=== PATIENT | female | born 1945 | race Caucasian/White ===

== ENCOUNTER → 2017-03-18 | Outpatient (CLI) | payer BC ==
[~2017-03-18] MED LIST: LEVO25TA5 PO
--- NOTE | 2017-03-18 11:39 | DIAGNOSTIC IMAGING REPORT ---
ABDOMEN COMPLETE (US) CLINICAL HISTORY: Left-sided tenderness with nausea. Abdominal pain. COMPARISON STUDY: Abdominal ultrasound April 23, [address] of the abdomen April 04, 2013. FINDINGS: Liver morphology is normal. A 1.7 cm mixed echogenicity right hepatic lobe lesion was shown to represent a hemangioma on CT of April 04, 2013. This is unchanged. There are no gallstones. There is no gallbladder wall thickening. The pancreatic body is normal. The head and tail are slightly obscured. There is no biliary ductal dilatation. The common bile duct measures 3 mm in caliber. The size of the spleen is normal. The right kidney measures 9.5 cm in maximal dimension and the left measures 10.4 cm. There is no hydronephrosis. A 4 mm right renal lesion is difficult to characterize given its small size but this favors a cyst. The caliber of the abdominal aorta is normal. Visualized portions of the IVC are patent. IMPRESSION: 1. No gallstones or biliary ductal dilatation. 2. 1.7 cm right hepatic lobe hemangioma which is unchanged since prior exams. 3. No hydronephrosis. 4. No change in appearance of the abdomen by sonography. Electronically signed by: Ti Flowers M.D. 03/18/2017 11:38 AM Dictated Date/Time: 03/18/2017 11:34 AM
== END | disposition home or self-care (01) ==
LOC: C.ULTR 10:44
PROVIDERS: ATTEND Family Medicine
DX: R10.9 Unspecified abdominal pain (principal)

== ENCOUNTER 2017-09-30 14:28 | Emergency (ER) | payer BC ==
[~2017-09-30] VITALS: Ht 165.1 cm; Wt 37.3 kg
[2017-09-30 14:33] VITALS: TEMP 37; Ht 165.1 cm; Wt 37.3 kg
[2017-09-30] MEDS ORDERED: ONDANSETRON INJ 2 MG/ML 2 ML VIAL IV STA (14:40)
[2017-09-30] MEDS ORDERED: FAMOTIDINE 20MG/5ML IV PUSH IV STA (14:40)
[2017-09-30] MEDS ORDERED: SODIUM CHLORIDE 0.9% 1000ML 2,000 ML IV STA (14:40)
--- NOTE | 2017-09-30 14:46 | EMERGENCY ROOM VISIT NOTE ---
History Report prepared by Lawson: Lauren Price Under the Supervision of: Dr. Giorgi Schreiber M.D. First contact with patient: 14:34 Chief Complaint: DIZZY Stated Complaint: ILLNESS Nursing Triage Summary: pt arrives via BLS per BLS pt had episode of diarrhea, she became dizzy, diaphoretic, and pale "I felt like I was going to pass out, I am sometimes diaphoretic for the past few months but this was worse." "I was sitting on the toilet, I put my head between my knees, when I was able I walked downstairs, I layed on the floor and called 911, it just happened so fast." Reports no Chest Pain or SOB, "my whole belly is sore but it often feels this way." Per EMS pt has HX of IBS, Colitis, and hypothyroidism History of Present Illness The patient is a 71 year old female who presents to the Emergency Room with complaints of constant dizziness beginning today. The patient states that she had an episode of diarrhea today and while she was sitting on the toilet she began to feel diaphoretic and lightheaded. She reports that she lowered herself to the ground and has been feeling dizzy since then. She complains of abdominal pain, ringing ears for the last few months, a dry cough, and nausea that has resolved. The patient states that she has had similar episodes over the last few months. She denies any fever, chills, and congestion. She reports that the dizziness does not feel like the room is spinning. She notes a history of acid reflux, IBS, and PTSD. Source of History: patient Onset: today Position: other (global) Quality: other (dizziness) Timing: constant Associated Symptoms: + cough, + nausea, + abdominal pain, + diarrhea, No fevers, No chills Note: The patient complains of dizziness and lightheadedness. She denies any congestion. Review of Systems See HPI for pertinent positives and negatives. A total of ten systems were reviewed and were otherwise negative. Past Medical & Surgical Medical Problems: (1) Anxiety (2) Bilateral tubal ligation (3) Concussion injury of brain (4) GERD (gastroesophageal reflux disease) (5) IBS (irritable bowel syndrome) (6) Post traumatic stress disorder Family History Patient reports no known family medical history. Social History Smoking Status: Never Smoker Alcohol Use: none Drug Use: none Marital Status: Housing Status: lives alone Occupation Status: employed Current/Historical Medications Scheduled Calcium Carbonate-Vitamin D (Calcium), 1 TAB PO DAILY Cholecalciferol (Vitamin D3), 1 TAB PO DAILY Ibuprofen (Advil), 400 MG PO PRN UD Levothyroxine Sodium (Levothyroxine Sodium), 25 MCG PO DAILY Magnesium Oxide (Mag-Ox), 400 MG PO DAILY Multivitamins/Minerals (Mvi With Minerals), 1 TAB PO DAILY Probiotic Product (Probiotic), 1 CAP PO DAILY Allergies Coded Allergies: Amoxicillin (Verified Allergy, Mild, HIVES, 04/14/16) Dairy (Verified Allergy, Unknown, UNKNOWN, 04/14/16) Gluten (Verified Allergy, Unknown, unknown, 04/14/16) Penicillins (Verified Allergy, Unknown, 04/14/16) Thiopental (Verified Allergy, Unknown, UNKNOWN, 04/14/16) LISTED "SODIUM PENTATHOL" IN UNCODED ALLERGIES Physical Exam Vital Signs Date Time Temp Pulse Resp B/P (MAP) Pulse Ox O2 Delivery O2 Flow Rate FiO2 09/30/17 18:30 88 16 134/76 98 09/30/17 17:41 64 16 115/72 96 Room Air 09/30/17 16:35 89 16 145/68 96 Room Air 09/30/17 16:00 64 16 124/64 95 Room Air 09/30/17 15:24 66 09/30/17 15:17 97 Room Air 09/30/17 14:33 37.0 56 16 119/65 98 Room Air Physical Exam GENERAL: Awake, alert, well-appearing, in no distress HENT: Normocephalic, atraumatic. Dry cracked mucous membranes. EYES: Normal conjunctiva. Sclera non-icteric. NECK: Supple. No nuchal rigidity. FROM. No JVD. RESPIRATORY: Clear to auscultation. CARDIAC: Regular rate, normal rhythm. Extremities warm and well perfused. Pulses equal. ABDOMEN: Soft, non-distended. No tenderness to palpation. No rebound or guarding. No masses. RECTAL: Deferred. MUSCULOSKELETAL: Chest examination reveals no tenderness. The back is symmetrical on inspection without obvious abnormality. There is no CVA tenderness to palpation. No joint edema. LOWER EXTREMITIES: Calves are equal size bilaterally and non-tender. No edema. No discoloration. NEURO: Normal sensorium. No sensory or motor deficits noted. normal cerebellar function with [id number], alternating palms, [id number] SKIN: No rash or jaundice noted. Medical Decision & Procedures ER Provider Diagnostic Interpretation: X-ray: Per my interpretation, radiologist review. CHEST ONE VIEW PORTABLE FINDINGS: The heart is normal in size. There is no lobar consolidation. There is subtle biapical fibronodular opacities, postinflammatory. There is no failure. There are no pleural effusions.[ IMPRESSION: 1. Subtle biapical fibronodular opacities, possibly postinflammatory 2. No evidence of lobar consolidation. No evidence of failure. Electronically signed by: Benny Polo M.D. 09/30/2017 3:39 PM Dictated Date/Time: 09/30/2017 3:38 PM Laboratory Results 09/30/17 15:00 Red Blood Count 3.86, Mean Corpuscular Volume 97.4, Mean Corpuscular Hemoglobin 32.1, Mean Corpuscular Hemoglobin Concent 33.0, Mean Platelet Volume 10.1, Neutrophils (%) (Auto) 63.4, Lymphocytes (%) (Auto) 25.1, Monocytes (%) (Auto) 9.2, Eosinophils (%) (Auto) 1.6, Basophils (%) (Auto) 0.5, Neutrophils # (Auto) 3.67, Lymphocytes # (Auto) 1.45, Monocytes # (Auto) 0.53, Eosinophils # (Auto) 0.09, Basophils # (Auto) 0.03 09/30/17 15:00 Test 09/30/17 15:00 09/30/17 16:29 White Blood Count 5.78 K/uL (4.8-10.8) Red Blood Count 3.86 M/uL (4.2-5.4) Hemoglobin 12.4 g/dL (12.0-16.0) Hematocrit 37.6 % (37-47) Mean Corpuscular Volume 97.4 fL (80-100) Mean Corpuscular Hemoglobin 32.1 pg (25-34) Mean Corpuscular Hemoglobin Concent 33.0 g/dl (32-36) Platelet Count 193 K/uL (130-400) Mean Platelet Volume 10.1 fL (7.4-10.4) Neutrophils (%) (Auto) 63.4 % Lymphocytes (%) (Auto) 25.1 % Monocytes (%) (Auto) 9.2 % Eosinophils (%) (Auto) 1.6 % Basophils (%) (Auto) 0.5 % Neutrophils # (Auto) 3.67 K/uL (1.4-6.5) Lymphocytes # (Auto) 1.45 K/uL (1.2-3.4) Monocytes # (Auto) 0.53 K/uL (0.11-0.59) Eosinophils # (Auto) 0.09 K/uL (0-0.5) Basophils # (Auto) 0.03 K/uL (0-0.2) RDW Standard Deviation 44.3 fL (36.4-46.3) RDW Coefficient of Variation 12.5 % (11.5-14.5) Immature Granulocyte % (Auto) 0.2 % Immature Granulocyte # (Auto) 0.01 K/uL (0.00-0.02) Anion Gap 4.0 mmol/L (3-11) Est Creatinine Clear Calc Drug Dose 34.5 ml/min Estimated GFR () 76.6 Estimated GFR (Non- 66.1 BUN/Creatinine Ratio 16.1 (10-20) Calcium Level 8.7 mg/dl (8.5-10.1) Total Bilirubin 1.0 mg/dl (0.2-1) Direct Bilirubin 0.2 mg/dl (0-0.2) Aspartate Amino Transf (AST/SGOT) 16 U/L (15-37) Alanine Aminotransferase (ALT/SGPT) 19 U/L (12-78) Alkaline Phosphatase 39 U/L (45-117) Troponin I < 0.015 ng/ml (0-0.045) Total Protein 6.4 gm/dl (6.4-8.2) Albumin 3.5 gm/dl (3.4-5.0) Lipase 133 U/L (73-393) Thyroid Stimulating Hormone (TSH) 6.240 uIu/ml (0.300-4.500) Free Thyroxine 0.97 ng/dl (0.80-1.60) Free Triiodothyronine 2.89 pg/ml (2.30-4.20) Urine Color YELLOW Urine Appearance CLEAR (CLEAR) Urine pH 8.0 (4.5-7.5) Urine Specific [place] 1.007 (1.000-1.030) Urine Protein NEG (NEG) Urine Glucose (UA) NEG (NEG) Urine Ketones NEG (NEG) Urine Occult Blood NEG (NEG) Urine Nitrite NEG (NEG) Urine Bilirubin NEG (NEG) Urine Urobilinogen NEG (NEG) Urine Leukocyte Esterase NEG (NEG) Laboratory results reviewed by me Medications Administered Medications (Trade) Dose Ordered Sig/Nelson Route Start Time Stop Time Status Last Admin Dose Admin Ondansetron HCl (Zofran Inj) 4 mg NOW STAT IV 09/30/17 14:40 09/30/17 14:51 DC 09/30/17 15:23 4 MG Sodium Chloride 2,000 ml @ 999 mls/hr Q2H1M STAT IV 09/30/17 14:40 09/30/17 16:40 DC 09/30/17 15:20 999 MLS/HR Famotidine (Pepcid 20mg Iv Push) 20 mg NOW STAT IV 09/30/17 14:40 09/30/17 14:51 DC 09/30/17 15:23 20 MG ECG Indication: weakness Rate (beats per minute): 69 Rhythm: normal sinus Findings: no acute ischemic change, other (sinus arrythmia) ED Course 1434: The patient was evaluated in room C10. A complete history and physical exam was performed. 1706: I reevaluated and updated the patient. 4: I reevaluated the patient. Discussed results and discharge instructions: She verbalized understanding and agreement. The patient is ready for discharge. Medical Decision I reviewed the patient's past medical history, medications, and the nursing notes as described above. The patient's presentation and history were concerning for dehydration, gastritis, gastroenteritis, IBS, electrolyte abnormality, ACS, arrhythmia, pneumonia, UTI, panic attack. The patient is a 71-year-old woman with a past medical history of hypothyroidism on Synthroid, IBS, as well as question of adrenal abnormalities per patient presents emergency Department with near syncopal episode when having diarrhea in the bathroom patient but did not pass out and lowered herself to the floor and called 911 per hpi. On arrival the patient is fatigued appearing but in no acute distress, afebrile with stable vital signs. Neuro intact including normal cerebellar function with [id number]-[id number], alternating palms, [id number]. Dry cracked mucous membranes. TSH elevated to 6. T3 and T4 wnl. Labs otherwise unremarkable. Patient improved after IV fluids and able to ambulate without difficulty. Findings and plan for follow-up reviewed with patient. Patient agreeable and d/c'd per discharge instructions. Medication Reconcilliation Current Medication List: was personally reviewed by me Blood Pressure Screening Patient's blood pressure: Normal blood pressure Blood pressure disposition: Did not require urgent referral Impression Primary Impression: Near syncope Additional Impressions: Dizziness Dehydration Scribe Attestation The scribe's documentation has been prepared under my direction and personally reviewed by me in its entirety. I confirm that the note above accurately reflects all work, treatment, procedures, and medical decision making performed by me. Departure Information Dispostion Home / Self-Care Referrals Juanito Dominguez M.D. (PCP) Patient Instructions Dizziness Fainting Poss Causes, ED Dehydration, ED Near Syncope Unkn, [facility] Additional Instructions Please follow up with your primary care physician in the next 1-3 days for re- evaluation. You likely were mildly dehydrated. Otherwise, your exam, EKG, chest xray, and lab results did not show signs of an emergent condition at this time. Drink plenty of fluids to ensure hydration. Return to the emergency department for worsening symptoms as described in the accompanying instructions. Problem Qualifiers
[2017-09-30 15:07] LABS: BASO % 0.5 %; BASO ABS # 0.03 K/uL (0-0.2); COMPLETE YES; EOS % 1.6 %; HEMATOCRIT 37.6 % (37-47); IG% 0.2 %; LYMPH % 25.1 %; LYMPH ABS # 1.45 K/uL (1.2-3.4); MEAN CELL VOLUME 97.4 fL (80-100); MEAN CORPUSCULAR HEMOGLOBIN 32.1 pg (25-34); MEAN PLATELET VOLUME 10.1 fL (7.4-10.4); MONO % 9.2 %; NEUT % 63.4 %; PLATELET COUNT 193 K/uL (130-400); RED BLOOD COUNT 3.86 M/uL (4.2-5.4); WHITE BLOOD COUNT 5.78 K/uL (4.8-10.8)
[2017-09-30 15:17] VITALS: O2SAT 97
[2017-09-30] MEDS ORDERED: CALC-51 PO (15:24)
[2017-09-30] MEDS ORDERED: MAGN400T6 PO (15:24)
[2017-09-30] MEDS ORDERED: MULT-513 PO (15:24)
[2017-09-30] MEDS ORDERED: MISCCAP80 PO (15:24)
[2017-09-30] MEDS ORDERED: IBUP-1277 PO (15:24)
[2017-09-30] MEDS ORDERED: CHOL1000 PO (15:24)
[2017-09-30 15:26] LABS: ALT/SGPT 19 U/L (12-78); AST/SGOT 16 U/L (15-37); BLOOD UREA NITROGEN 14 mg/dl (7-18); BUN/CREATININE RATIO 16.1 (10-20); CALCIUM 8.7 mg/dl (8.5-10.1); CARBON DIOXIDE 27 mmol/L (21-32); CHLORIDE 106 mmol/L (98-107); CREATININE 0.88 mg/dl (0.60-1.20); GLUCOSE 148 mg/dl (70-99); POTASSIUM 3.7 mmol/L (3.5-5.1); SODIUM 137 mmol/L (136-145)
[2017-09-30 15:37] LABS: ALKALINE PHOSPHATASE 39 U/L (45-117)
--- NOTE | 2017-09-30 15:40 | DIAGNOSTIC IMAGING REPORT ---
CHEST ONE VIEW PORTABLE CLINICAL HISTORY: Atypical chest pain COMPARISON STUDY: 04/18/2014 FINDINGS: The heart is normal in size. There is no lobar consolidation. There is subtle biapical fibronodular opacities, postinflammatory. There is no failure. There are no pleural effusions.[ IMPRESSION: 1. Subtle biapical fibronodular opacities, possibly postinflammatory 2. No evidence of lobar consolidation. No evidence of failure. Electronically signed by: Benny Polo M.D. 09/30/2017 3:39 PM Dictated Date/Time: 09/30/2017 3:38 PM
[2017-09-30 16:47] LABS: URINE APPEARANCE CLEAR (CLEAR); URINE BILIRUBIN NEG (NEG); URINE COLOR YELLOW; URINE NITRITE NEG (NEG); URINE SPECIFIC GRAVITY 1.007 (1.000-1.030); UROBILINOGEN NEG (NEG); ZZUR CULT IF INDIC CLEAN CATCH NO
[2017-09-30 16:59] LABS: MANUAL MICROSCOPIC REQUIRED? NO; REVIEW REQ? NO
[2017-09-30] MEDS ORDERED: LEVO25TA5 PO (17:12)
[2017-09-30 18:30] VITALS: BP 134/76; PULSE 88; O2SAT 98
== END 2017-09-30 18:45 | disposition home or self-care (01) ==
LOC: EDBD 14:28 → C.EDC 14:29
DX: R55 Syncope and collapse (principal); R42 Dizziness and giddiness; E86.0 Dehydration; E03.9 Hypothyroidism, unspecified; K21.9 Gastro-esophageal reflux disease without esophagitis; F41.9 Anxiety disorder, unspecified; K58.9 Irritable bowel syndrome, unspecified; Z87.820 Personal history of traumatic brain injury; Z79.899 Other long term (current) drug therapy; Z88.0 Allergy status to penicillin; Z88.1 Allergy status to other antibiotic agents; Z88.8 Allergy status to other drugs, medicaments and biological substances; Z91.011 Allergy to milk products

== ENCOUNTER → 2017-10-30 | Outpatient (CLI) | payer BC ==
[~2017-10-30] MED LIST changes: +CALC-51 PO; +CHOL1000 PO; +IBUP-1277 PO; +MAGN400T6 PO; +MISCCAP80 PO; +MULT-513 PO
--- NOTE | 2017-10-30 15:09 | MAMMOGRAPHY REPORT ---
BILATERAL DIGITAL SCREENING MAMMOGRAM TOMOSYNTHESIS WITH CAD: 10/30/2017 CLINICAL HISTORY: Routine screening. Patient has no complaints. TECHNIQUE: Breast tomosynthesis in addition to standard 2D mammography was performed. Current study was also evaluated with a Computer Aided Detection (CAD) system. COMPARISON: Comparison is made to exams dated: 07/08/2015 mammogram, 02/10/2010 mammogram - [facility], 05/18/2009, 05/13/2009, 06/25/2000 mammogram, and 10/10/1998 mammogram - [facility]. BREAST COMPOSITION: There are scattered areas of fibroglandular density in both breasts. FINDINGS: There are a few benign coarse calcifications in the breasts. No new suspicious mass, archi tectural distortion or cluster of suspicious microcalcifications is seen. IMPRESSION: ACR BI-RADS CATEGORY 1: NEGATIVE There is no mammographic evidence of malignancy. A 1 year screening mammogram is recommended. The pa tient will receive written notification of the results. Approximately 10% of breast cancers are not detected with mammography. A negative mammographic report should not delay biopsy if a clinically suggestive mass is present. Edna Rene M.D. ay/:10/30/2017 12:03:42 [employer]borne Weapons Technical Manager: Celia WILSON(Lali)(Konrad), [facility] letter sent: Normal 1/2 BI-RADS Code: ACR BI-RADS Category 1: Negative
== END | disposition home or self-care (01) ==
LOC: C.MAMM 10:47
PROVIDERS: ATTEND Obstetrics & Gynecology
DX: Z12.31 Encounter for screening mammogram for malignant neoplasm of breast (principal)

== ENCOUNTER 2019-08-25 13:50 | Observation (INO) ==
[2019-08-25] MEDS ORDERED: ONDANSETRON INJ 2 MG/ML 2 ML VIAL IV STA ×2 (14:08→14:24)
[2019-08-25 14:24] LABS: Basophils # (auto) 0.02 K/uL (0-0.2); Basophils % (auto) 0.2 %; Eosinophils # (auto) 0.01 K/uL (0-0.5); Eosinophils % (auto) 0.1 %; Hematocrit (blood only) 43.8 % (37-47); Hemoglobin 14.4 g/dL (12.0-16.0); Immature Granulocytes # (auto) 0.01 K/uL (0.00-0.02); Immature Granulocytes % (auto) 0.1 %; Lymphocytes # (auto) 1.33 K/uL (1.2-3.4); Lymphocytes % (auto) 16.5 %; Mean Corpuscular Hgb Conc 32.9 g/dL (32-36); Mean Corpuscular Volume 94.2 fL (80-100); Mean Platelet Volume 9.5 fL (7.4-10.4); Monocytes # (auto) 0.57 K/uL (0.11-0.59); Monocytes % (auto) 7.1 %; Neutrophils # (auto) 6.11 K/uL (1.4-6.5); Platelet Count 235 K/uL (130-400); RDW Coefficient of Variation 12.2 % (11.5-14.5); RDW Standard Deviation 41.9 fL (36.4-46.3); Red Blood Count 4.65 M/uL (4.2-5.4); White Blood Count 8.05 K/uL (4.8-10.8)
[2019-08-25] MEDS ORDERED: SODIUM CHLORIDE 0.9% 1000ML 1,000 ML IV ONE (14:24)
[2019-08-25] MEDS ORDERED: DIAZEPAM 5 MG/ML INJ 10ML VIAL IV STA ×4 (14:24→16:24)
[2019-08-25 14:51] LABS: Alanine Aminotransferase 15 U/L (12-78); Albumin Level 4.1 gm/dl (3.4-5.0); Aspartate Aminotransferase 19 U/L (15-37); BUN Creatinine Ratio 16.3 (10-20); Blood Urea Nitrogen 15 mg/dl (7-18); Calcium 9.5 mg/dl (8.5-10.1); Carbon Dioxide 22 mmol/L (21-32); Chloride 105 mmol/L (98-107); Creatinine Clr Calc Pharmacy 46.5 ml/min; Est GFR (African American) 70.7; Glucose 101 mg/dl (70-99); Lipase 119 U/L (73-393); Potassium 3.8 mmol/L (3.5-5.1); Sodium 138 mmol/L (136-145)
[2019-08-25 14:56] LABS: Albumin Globulin Ratio 1.4 (0.9-2); Alkaline Phosphatase 46 U/L (45-117); Bilirubin,Total 2.8 mg/dl (0.2-1); Total Protein 7.1 gm/dl (6.4-8.2); Troponin I < 0.015 ng/ml (0-0.045)
[2019-08-25] MEDS ORDERED: METOCLOPRAMIDE HCL INJ 5 MG/ML 2 ML VIAL IV STA (15:25)
[2019-08-25] MEDS ORDERED: PROMETHAZINE 25 MG/51 ML BAG IV STA (17:04)
[2019-08-25] MEDS ORDERED: SODIUM CHLORIDE 0.9% 1000ML 500 ML IV ONE (17:04)
[2019-08-25] MEDS ORDERED: DiphenhydrAMINE HCL 50 MG/ML VIAL IV STA (17:04)
[2019-08-25] MEDS ORDERED: HALOPERIDOL LACTATE 5 MG/ML 1 ML VIAL IV STA (19:55)
--- NOTE | 2019-08-25 20:24 | History & Physical Report ---
Date of Service August 25, 2019 Assessment & Plan (1) Persistent vomiting: Ms. Merino is a 73-year-old female with a history of IBS, anxiety, and GERD who presents to the emergency department due to a 1 day history of generalized weakness, nausea, and intractable vomiting. ED Course: 4 mg IV Zofran, 1 L normal saline bolus, 5 mg IV Valium, 10 mg IV Reglan, 3 mg IV Valium, 25 mg IV Benadryl, 25 mg IV Phenergan, 500 mL normal saline bolus Intractable vomiting -Admit to med/surg -Patient continues to have intractable nausea and vomiting, despite several medications administered in the ER -Patient reports a long-standing history of the same -No red flag symptoms to suggest acute abdomen -Apart from mildly elevated bilirubin at 2.8, CBC, CMP, lipase, and troponin are normal -Clear liquid diet ordered, IV Zofran and Phenergan ordered as needed for nausea -Consider additional doses of Valium as needed -Maintenance IV fluids with LR at 95 mls/hr x 2 bags -Gastric occult blood positive, start 40 mg Protonix twice daily -Patient not currently having any more bloody emesis, consider GI consult if this recurs Anxiety -Continue home lorazepam nightly CODE STATUS: Full DVT prophylaxis: SCDs Disposition: Admit to med/surg (2) IBS (irritable bowel syndrome): (3) Abdominal pain: (4) Anxiety: (5) GERD (gastroesophageal reflux disease): History of Present Illness Chief Complaint: Vomiting Primary Care Provider: Juanito Dominguez MD Ms. Merino is a 73-year-old female with a history of IBS, anxiety, and GERD who presents to the emergency department due to a 1 day history of generalized weakness, nausea, and intractable vomiting. Ms. Tompkins reports that she has a history of episodic vomiting, which has been present all her life. She states that she has episodes randomly, lasting up to 3 days in duration, and then spontaneously resolving. She notes that she began to feel nauseous and unwell 2 days ago, and reported vomiting that began today. She states that she had several episodes of vomiting at home, and did endorse vomiting bright red blood at one point, which has since resolved. She reports associated abdominal pain, but denies a history of ulcers in the past. She states that she has never had an EGD before. She endorses associated loose stools, but denies the presence of blood in her stools. She reports a "subjective fever" at home, stating that she normally has a low temperature, and reporting a "fever of 37.3 C." She denies any chest pain, or shortness of breath. She has no urinary complaints. She states she has vomited approximately 7 times in the emergency department, but does report improvement with the administered medications. Allergies Allergy/AdvReac Type Severity Reaction Status Date / Time amoxicillin Allergy Severe Anaphylaxis Verified 08/25/19 15:13 Penicillins Allergy Severe Anaphylaxis Verified 08/25/19 15:13 morphine Allergy Intermediate VOMITTING Unverified 08/25/19 15:13 thiopental Allergy Intermediate VOMITTING Verified 08/25/19 15:13 milk Allergy Mild STOMACH Verified 08/25/19 15:13 CRAMPS gluten AdvReac Mild STOMACH Verified 08/25/19 15:13 CRAMPS Home Medications Home Medications Medication Instructions Recorded Confirmed Type vitamin B complex 1 tab PO DAILY 08/07/18 08/25/19 History Probiotic 3,000 mmu cells PO DAILY 08/25/19 08/25/19 History lorazepam 0.25 mg PO HS 08/25/19 08/25/19 History promethazine 25 mg KS Q6H PRN #12 ea 08/25/19 Rx pantoprazole 40 mg PO BID 14 Days #28 tab 08/26/19 Rx Past Med/Surg History Medical History Anemia A TEENAGER Anxiety Cancer SKIN BCC ON NECK Depression Fibromyalgia Gall bladder disease "SPASTIC GALL BLADDER" GERD (gastroesophageal reflux disease) (Chronic) Gluten intolerance Hypothyroidism NO CURRENT TX Irritable bowel syndrome Osteoarthritis PTSD (post-traumatic stress disorder) Syncope LAST WEEK AFTER SURGEON'S OFFICE (PAIN INDUCED AND HAD NOT EATEN). Surgical History History of bilateral tubal ligation History of colonoscopy History of esophagogastroduodenoscopy (EGD) History of rhinoplasty History of surgery RT HUMEROUS BONE SPURS REMOVED LEFT HUMEROUS FX REPAIR History of tooth extraction S/P LASIK surgery of both eyes Family History Other Family history non-contributory Social History Preferred Language: Monegasque Communication Ability: Effective Hog Sticker Required: No Beliefs That Will Affect Care: None Current Living Situation: Alone Other Information That Helps Us Care for You: No Feels Safe at Home: Yes Safety Concerns: Feels Safe At This Time Smoking Status: Never smoker Second Hand Exposure: Yes (IN THE PAST) ; Hx Alcohol Use: No Hx Substance Use: No Review of Systems Constitutional: + fever, + fatigue, + weakness and + anorexia Ear, Nose, Mouth, Throat: no nasal congestion and no sore throat Respiratory: no cough, no dyspnea and no wheezing Cardiovascular: no chest pain, no syncope, no edema and no calf pain Gastrointestinal: + abdominal pain, + nausea, + vomiting and + change in bowel habits Genitourinary: no dysuria, no difficulty urinating, no urinary frequency and no urinary urgency Musculoskeletal: + back pain Integumentary: no rash and no lesions Physical Exam Constitutional: WD/WN, vitals as above + thin Eyes: PERRL, conjunctivae normal, anicteric sclerae ENMT: external ear and nose normal, oropharynx normal Respiratory: normal respiratory effort, lungs clear to auscultation Cardiovascular: RRR, no murmur, no edema Gastrointestinal (Abdomen): Percussion/Palpation: + abdomen tender (Discomfort noted throughout abdomen) and abdomen soft; no guarding and abdomen not rigid Musculoskeletal: no cyanosis or clubbing, extremities motor strength 5/5 Skin: no rashes, warm and dry Neurologic: PERRL, EOMI, accommodation nl, no face palsy, no dysarthria moves all extremities; no focal motor deficits Psychiatric: Orientation: alert and oriented x 3 Affect: + flat affect Results & Data Vital Signs (Past 12 Hours) Vital Signs Temp Pulse Pulse Resp BP BP Pulse Ox 08/25/19 19:22 83 18 151/85 H 96 08/25/19 19:00 85 18 140/92 95 08/25/19 15:16 105 H 18 158/73 H 94 08/25/19 14:30 96 08/25/19 13:53 36.6 C 97 H 18 144/92 H 99 Code Status & VTE Plan VTE Prophylaxis Plan VTE Prophylaxis will be ordered: Yes Supervising Physician Co-Signing Physician Notes Attending addendum: I have physically seen this patient, have supervised the medical residents activities, and agree with the H&P unless as otherwise noted. Assessment and Plan: Intractable nausea and vomiting/irritable bowel syndrome/chronic abdominal pain- Admit to medical surgical floor Has had extensive treatment in the emergency department with little response to multiple medications. Extensive history of the symptoms, and unresponsiveness to therapy. Supportive treatment at this time with IV fluids, IV Zofran, IV Phenergan, oral Protonix and rehydration with lactated Ringer's. No further work-up needed. Significant anxiety component. Remainder of orders and notations as noted. Resident Activity Tracking Resident Involvement: Resident Care Provided Care Provided: Adult [facility] Medicine
[2019-08-25 20:44] LABS: Gastric Occult Blood Positive (Negative); pH Gastric Fluid 3
[2019-08-25] MEDS ORDERED: LORazepam 0.5 MG TAB PO SCH (21:25)
[2019-08-25] MEDS ORDERED: MAGNESIUM HYDROXIDE SUSP 30 ML UDC PO PRN (21:25)
[2019-08-25] MEDS ORDERED: ACETAMINOPHEN 325 MG TAB PO PRN (21:25)
[2019-08-25] MEDS ORDERED: IBUPROFEN 200 MG TAB PO PRN (21:25)
[2019-08-25] MEDS ORDERED: ALUMINUM/MAGNESIUM SUSP 30 ML UDC PO PRN (21:25)
[2019-08-25] MEDS ORDERED: ONDANSETRON INJ 2 MG/ML 2 ML VIAL IV PRN (21:25)
[2019-08-25] MEDS ORDERED: PROMETHAZINE HCL 6.25 MG in SODIUM CHLORIDE 0.9% 50 ML IV PRN (21:51)
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
[2019-08-25] MEDS: LACTATED RINGER'S 1,000 ML IV SCH (22:04)
[2019-08-25] MEDS: PANTOprazole 40 MG TAB PO SCH (22:20)
[2019-08-26 00:18] LABS: Appearance Urine Clear (Clear); Bacteria Urine Automated Negative (Negative); Bilirubin Urine Negative (Negative); Blood Urine 2+ (Negative); Color Urine Yellow; Glucose Urine UA Negative (Negative); Leukocyte Esterase Urine Negative (Negative); Nitrite Urine Negative (Negative); Protein Urine Negative (Negative); Specific Gravity Urine 1.015 (1.000-1.030); Urobilinogen Urine Negative (Negative)
[2019-08-26 00:21] LABS: Ketones Urine 4+ (Negative)
--- NOTE | 2019-08-26 07:20 | CT Scan Report ---
ABDOMEN AND PELVIS CT WITHOUT CONTRAST CT DOSE: 399.72 mGy.cm HISTORY: hematuria, left flank pain, r/o kidney stones TECHNIQUE: Multiaxial CT images of the abdomen and pelvis were performed without contrast. A dose lo wering technique was utilized adhering to the principles of ALARA. COMPARISON STUDY: Abdomen and pelvis CT 07/25/2018. FINDINGS: A stable 3 mm nodule within the right middle lobe. No pneumoperitoneum. No pneumatosis. No suspicious lytic are blastic osseous lesions. The unenhanced liver, spleen, pancreas, and adrenal gla nds are within normal limits. A few subcentimeter hypodense foci within the periphery of the kidneys likely represent hyperdense cysts. No renal or ureteral stones. No hydronephrosis. No retroperitoneal lymphadenopathy. The bladder is unremarkable. A 3 cm exophytic mass within the posterior uterine wal l. This favors a fibroid and remains unchanged. There is thickening of the endometrial lining measuri ng up to 1 cm. This is considered abnormal for the patient's age. Suboptimal evaluation for bowel pat hology due to the lack of intravenous and oral contrast. Colonic diverticulosis. Normal appendix. Min imal fat stranding surrounding the both the hepatic and splenic flexures of the colon and possibly th e transverse colon. This raises the possibility of a mild nonspecific colitis. There is also inflamma tory change adjacent to the gallbladder fundus without gallbladder wall thickening. This may be assoc iated with the adjacent hepatic flexure of the colon. No evidence for bowel obstruction. IMPRESSION: 1. Questionable pericolonic fat stranding surrounding the hepatic and splenic flexures of the colon a s well as the transverse colon. This raises a possibility of a mild nonspecific colitis. 2. There is also mild inflammatory change adjacent to the gallbladder fundus without gallbladder wall thickening. However, this may be secondary to the adjacent hepatic flexure of the colon. 3. No renal or ureteral stones. No hydronephrosis. 4. Stable uterine fibroid. 5. Focal thickening of the endometrium measuring up to 1 cm. This is considered abnormal in a postmen opausal female. Follow-up nonemergent pelvic ultrasound is recommended for further evaluation. 6. These findings were called/faxed to the referring physician following dictation. Electronically signed by: Brandon Ewing M.D. 08/26/2019 7:19 AM
[2019-08-26] MEDS: PANTOprazole 40 MG TAB PO SCH (07:45)
[2019-08-26 08:39] LABS: Hematocrit (blood only) 37.7 % (37-47); Hemoglobin 12.6 g/dL (12.0-16.0); Mean Corpuscular Hgb Conc 33.4 g/dL (32-36); Mean Corpuscular Volume 92.6 fL (80-100); Mean Platelet Volume 9.2 fL (7.4-10.4); Platelet Count 236 K/uL (130-400); RDW Coefficient of Variation 12.2 % (11.5-14.5); RDW Standard Deviation 41.8 fL (36.4-46.3); Red Blood Count 4.07 M/uL (4.2-5.4); White Blood Count 9.12 K/uL (4.8-10.8)
[2019-08-26] MEDS ORDERED: VITAMIN B COMPLEX TAB PO SCH (09:00)
[2019-08-26] MEDS ORDERED: LACTOBACILLUS ACIDOPHILUS (FLORANEX) TAB PO SCH (09:00)
[2019-08-26 09:08] LABS: Albumin Level 3.5 gm/dl (3.4-5.0); BUN Creatinine Ratio 18.9 (10-20); Calcium 8.5 mg/dl (8.5-10.1); Creatinine Clr Calc Pharmacy 52.8 ml/min; Est GFR (African American) 82.3; Potassium 3.6 mmol/L (3.5-5.1)
[2019-08-26 09:23] LABS: Albumin Globulin Ratio 1.3 (0.9-2); Bilirubin,Total 2.1 mg/dl (0.2-1); Globulin 2.7 gm/dl (2.5-4.0); Thyroid Stimulating Hormone 2.95 uIu/ml (0.300-4.500); Total Protein 6.2 gm/dl (6.4-8.2)
[2019-08-26] MEDS: LACTATED RINGER'S 1,000 ML IV SCH (09:44)
--- NOTE | 2019-08-26 16:03 | Discharge Summary ---
Date of Service August 26, 2019 Admission HPI Per Admitting Provider Ms. Merino is a 73-year-old female with a history of IBS, anxiety, and GERD who presents to the emergency department due to a 1 day history of generalized weakness, nausea, and intractable vomiting. Ms. Tompkins reports that she has a history of episodic vomiting, which has been present all her life. She states that she has episodes randomly, lasting up to 3 days in duration, and then spontaneously resolving. She notes that she began to feel nauseous and unwell 2 days ago, and reported vomiting that began today. She states that she had several episodes of vomiting at home, and did endorse vomiting bright red blood at one point, which has since resolved. She reports associated abdominal pain, but denies a history of ulcers in the past. She states that she has never had an EGD before. She endorses associated loose stools, but denies the presence of blood in her stools. She reports a "subjective fever" at home, stating that she normally has a low temperature, and reporting a "fever of 37.3 C." She denies any chest pain, or shortness of breath. She has no urinary complaints. She states she has vomited approximately 7 times in the emergency department, but does report improvement with the administered medications. Principal Diagnosis Intractable Vomiting - Migraine vs Nonspecific Colitis/PUD Discharge Exam Constitutional WD/WN, vitals as above Eyes + anicteric sclerae ENMT Ears: no hearing impairment Neck trachea midline Respiratory normal respiratory effort, lungs clear to auscultation Cardiovascular RRR, no murmur, no edema Gastrointestinal (Abdomen) Inspection/Auscultation: normal bowel sounds Percussion/Palpation: abdomen soft; abdomen nontender Skin no rashes, warm and dry Neurologic moves all extremities Psychiatric A+Ox3, euthymic affect Discharge Data Allergies Allergy/AdvReac Type Severity Reaction Status Date / Time amoxicillin Allergy Severe Anaphylaxis Verified 08/25/19 15:13 Penicillins Allergy Severe Anaphylaxis Verified 08/25/19 15:13 morphine Allergy Intermediate VOMITTING Unverified 08/25/19 15:13 thiopental Allergy Intermediate VOMITTING Verified 08/25/19 15:13 milk Allergy Mild STOMACH Verified 08/25/19 15:13 CRAMPS gluten AdvReac Mild STOMACH Verified 08/25/19 15:13 CRAMPS Consultations 08/25/19 19:55 ED Decision to Admit Stat Ordered Studies 08/26/19 00:57 CT abd pelvis wo con Urgent Hospital Course (1) Vomiting: - H/O IBS, Anxiety, GERD - endorses several food intolerance; also endorses occ. episodic vomiting that tends to spontaneously abort - CT with questionable mild nonspecific colitis, no gallbladder wall thickening, no renal s tones -- Stable Uterine Fibroid - FOCAL THICKENING OF ENDOMETRIUM OF 1 CM - needs nonemergent U/S to further evaluate given postmenopausal statsu - N/V has resolved with multiple anti-emetics and hydration - Patient plans to eat a bland light diet for a few days and avoid fatty foods - May need to consider HIDA scan given her reports of eating more fatty foods then normal lately - no signs of cholecystitis on imaging or RUQ pain - Did have some bleeding with vomiting - likely maira staples tears - hemoglobin is stable - Possibility of PUD - does report NSAID use - will treat with Protonix 40 mg BID x 14 days which may assist with possible gastritis - Did recommend consideration for GI F/U - Symptoms may even correlate with migraine as she does endorse a headache before symptoms began - possible referral to neurology vs trail of migraine- aborting medications Total Time Total Time Spent Total Time Spent (In Minutes): Greater than 30 minutes Discharge Plan Discharge Items Patient Disposition: Home - Self-Care Reason For Visit: INTRACTABLE VOMITING Discharge Diagnosis: Intractable Vomiting Condition on Discharge: Fair Activity: Resume your previous activity Non-emergency contact: Primary Care Provider Call non-emergency contact if: you have any medication questions, your symptoms worsen and you have a fever Follow-up/Referrals: Juanito Dominguez MD [Primary Care Provider] - 09/01/19 2:50 pm (Please, follow up at Dr. Dominguez's office with his associate, Nadine JOSE, on SaturdaySeptember 01 at 2:50 pm. *If you need to change this appointment, call their office at [phone].) Diet: Regular and Gluten Free Addtl Attending Provider Instructions: Vomiting: - You were admitted for vomiting. It is uncertain what caused this but it could be from some food intolerances. Your CAT scan shows some colitis (inflammation of the colon). This is nonspecific but can be from having chronic diarrhea issues or GI infection "stomach flu". Thankfully no kidney stones. 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 This may be just your normal but it is important to watch for any changes in the cell lining of the uterus - With eating more fatty foods lately, it might not be a bad thing to have a HIDA scan to look at how your gallbladder is functioning. Thankfully your gallbladder does not look infected on the CAT scan but still might not be working well which can cause vomiting and stomach issues - The blood you were vomiting likely came from what is called Maira Staples tears. Thankfully your blood counts are normal and you are not even anemic which is great. -- However, with using ibuprofen/motrin/aleve/naprosyn - or medications called NSAIDs this can increase your chances of stomach ulcers. Unfortunately stomach ulcers are not normally seen on imaging and would need a scope called and EGD to diagnose -- For now, would recommend using Tylenol for mild discomfort instead of these above mentioned medications as Tylenol is not associated with stomach ulcers. - Given your vomiting and possibility of stomach ulcer we are going to treat as if you did have this - please take Protonix 40 mg twice a day for 14 days. This is a stomach acid reducing medication that can help prevent irritation in the stomach lining as well as heartburn - Hopefully you will have no more nausea/vomiting. Can continue your anti-nausea medications as needed. Recommend a bland diet for a couple days. Would avoid chocolate, fatty greasy foods, acidic foods, citrus foods, and caffeine for a couple weeks if possible as some of these foods can be more irritative to the stomach and can relax the sphincter that attaches the esophagus to the stomach which can cause some heart burn/reflux - As discussed with Dr. Jonas - given your symptoms started with a headache it is possible these a migraine-induced episodes. Please talk with your doctor abou t possible treatment for migraines vs referral to a neurologist for management -It appears the ED has sent over a couple prescriptions for Phergen which is an anti-nausea medication. This medication can make you sleepy so would recommend not to take if you are driving Pending Studies at Discharge: No Stand-Alone Forms: My [employer], Smoking Cessation Medications and DC Order Prescriptions: New promethazine 25 mg suppository 25 mg IL Q6H PRN (Reason: sedation) Qty: 12 RF: 0 pantoprazole 40 mg Tablet,Delayed Release (Dr/Ec) 40 mg PO BID 14 Days Qty: 28 RF: 0 Continued lorazepam 0.5 mg tablet 0.25 mg PO HS RF: 0 Probiotic 3 billion cell Capsule 3,000 mmu cells PO DAILY RF: 0 vitamin B complex Tablet 1 tab PO DAILY RF: 0 Discontinued ibuprofen [Advil] 200 mg Tablet 200 mg PO Q6 PRN (Reason: Pain) RF: 0 Discharge Orders: Discharge Order (Routine); Ordered 08/26/19 Ordered By: Darlene Anne Admission Data Admit Date/Time: 08/25/19 20:23 Attending Provider: Alexander Jonas Admit Provider: Neal Wheat Primary Care Provider: Juanito Dominguez Other Providers: Phong Holguin Other Interventions: Discharge Summary Assessment (RN) Last Done: 08/26/19 17:32 DC Date/Time DO NOT enter until pt leaves facility: 08/26/19 18:12 Supervising Physician Co-Signing Physician Notes Attending note: patient seen and examined with Darlene Anne PA-C. I agree with her discharge summary. I personally reviewed the labs and imaging findings. Patient feeling a lot better after vomiting several times at home. She reports a history of these episodes, associated with severe headache and then vertigo and nausea and vomiting. She was wondering what a diagnosis could be as these episodes happen several times a year. Suggested she talk with her PCP about the possibility of atypical migraine since the episodes start with a severe headache could consider referral to neurology as outpatient, perhaps trying a triptan at the onset could help with symptoms - Intractable nausea and vomiting: acute episode resolved, tolerating diet, patient wants to go home reports seeing a small amount of blood after she had vomited several times intense retching easily could have caused a small Maira Leslie tear the bloody emesis resolved quickly, had several more vomiting episodes of just bile instructed the patient that if she should have further bloody emesis or anything like coffee grounds she should return to ED immediately
--- NOTE | 2019-08-28 00:16 | Billing Data ---
Coding Level of Care Code 46176 OBS Care - Level 2
== END 2019-08-26 18:12 | disposition home or self-care (01) ==
LOC: ED 13:50 → 4W 13:50 → SUATTDRO 20:23 → 4W 21:08